=== PATIENT | male | born 1995 ===

== ENCOUNTER 2021-02-07 16:52 | Emergency (ER) | payer OTHER ==
[2021-02-07] MEDS ORDERED: DIPH,PERTUS(ACELL)TETVAC-LF 0.5 ML VIAL IM ONE (17:39)
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
[2021-02-07 18:34] VITALS: BP 112/80; PULSE 82; RESP 18; TEMP 97.8
== END 2021-02-07 18:34 | disposition home or self-care (01) ==
LOC: EC 16:52
DX: S40.011A Contusion of right shoulder, initial encounter (principal); S80.02XA Contusion of left knee, initial encounter; V47.5XXA Car driver injured in collision with fixed or stationary object in traffic accident, initial encounter; Y92.410 Unspecified street and highway as the place of occurrence of the external cause
CPT/HCPCS: 90471; 90715; 99284